=== PATIENT | female | born 2000 | race Caucasian/White ===

== ENCOUNTER 2022-10-16 13:08 | Emergency (ER) | payer SELFPAY ==
[2022-10-16 15:09] LABS: CORONAVIRUS COVID-19 NAA NEGATIVE (NEGATIVE)
== END 2022-10-16 16:40 | disposition home or self-care (01) ==
LOC: JD.ED 13:08
DX: N39.0 Urinary tract infection, site not specified (principal); Z79.899 Other long term (current) drug therapy; Z20.822 Contact with and (suspected) exposure to COVID-19
CPT/HCPCS: 0240U; 36415; 80053; 81001; 81025; 85025; 87086; 99283

== ENCOUNTER 2024-01-01 20:37 | Emergency (ER) | payer BC | END 2024-01-01 22:52 | disposition home or self-care (01) | LOC: JD.ED 20:37 | DX: S52.132A Displaced fracture of neck of left radius, initial encounter for closed fracture (principal); S63.502A Unspecified sprain of left wrist, initial encounter; J45.909 Unspecified asthma, uncomplicated; Z79.899 Other long term (current) drug therapy; W00.0XXA Fall on same level due to ice and snow, initial encounter | CPT/HCPCS: 29125; 73090-26-LT; 73090-LT; 73110-26-LT; 73110-LT; 99283 ==